=== PATIENT | female | born 1945 | race African-American/Black ===

== ENCOUNTER 2016-07-28 17:29 | Inpatient (IN) | payer BC, OTHER ==
--- NOTE | ~2016-07-28 | CN ---
Consultation Report [facility] [address] [facility] [place]. [address] NAME: OSIEL MURPHY : 47 STATUS : ADM IN [facility]#: [id number] AGE: 70 ADM/REG DATE : 07/28/16 MR#: [id number] REPORT SERV DATE: 07/29/16 DICTATED BY: SHASHANK WINTER DATE: 07/29/16 REPORT STATUS : Draft TRANSCRIBED BY: MODJessi DATE: 07/29/16 CONSULTATION DATE OF CONSULTATION: TIME: 1045 hours. REASON FOR CONSULTATION: 1. Acute on chronic kidney injury with underlying dehydration like may have gone on to ATN in a patient who likely has chronic kidney disease that has now progressed to stage III from poorly controlled diabetes and hypertension. Previously seen by Dr. Larkin in the office in 2001 for evaluation of proteinuria with no followup. 2. Severe dehydration with severe hyponatremia that is likely fairly acute in the setting off all hyperosmolar nonketotic diabetic ketoacidosis precipitated by glycosuria and a blood sugar initially in the 1000s. 3. Poorly controlled diabetes, hyperglycemia. 4. Hypertension. 5. Proteinuria that is likely diabetic in nature. Diabetic nephropathy induced, but we will evaluate further. We will hold off on Oni or ARB or any antiproteinuric therapy for now until we can determine what her baseline creatinine is. HISTORY OF PRESENT ILLNESS: History is obtained from the family and the records available. The patient remains lethargic and unable to provide me information at this time. I did get some information from two granddaughters who were there and Dr. Curiel's HPI. She is a 70-year-old female, who has history of longstanding diabetes, but apparently came off her diabetic medications six months ago because apparently she was advised her blood sugars were stable. She has developed increasing sluggishness, fatigue, polyuria, polydipsia, and all features consistent with hyperglycemia and then with worsening symptoms of polyuria and polydipsia and some dysuria, she came in for further evaluation, and was found to have these markedly abnormal labs. PAST MEDICAL HISTORY: Includes 1. Diabetes mellitus, off medications, six months. 2. Fatty liver. 3. Proteinuria with CKD, now 3. 4. Migraine headaches. 5. Gastroesophageal reflux disease. 6. Hypertension. PAST SURGICAL HISTORY: Includes hysterectomy and partial thyroidectomy. ALLERGIES: NO KNOWN DRUG ALLERGIES. Consultation Report [facility] [address] [place]. [address] NAME: OSIEL MURPHY : [birth year] STATUS : ADM IN [facility]#: [id number] AGE: 70 ADM/REG DATE : 07/28/16 MR#: [id number] REPORT SERV DATE: 07/29/16 DICTATED BY: SHASHANK WINTER DATE: 07/29/16 REPORT STATUS : Draft TRANSCRIBED BY: MODJessi DATE: 07/29/16 MEDICATIONS: No home medications at the present time. 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 FAMILY HISTORY: Negative for diabetes and hypertension, end-stage renal failure, apparently strong family history of cancer physical. REVIEW OF SYSTEMS: As per the HPI. PHYSICAL EXAMINATION: GENERAL: She is an obese female, who is lying in bed, but will not follow commands. VITAL SIGNS: Blood pressures have been running in 130s over 60s. Heart rate is about 113. HEENT: Pupils are reacting to light. She is pale, but not jaundiced. Oral mucosa is dry. No pharyngitis. NECK: Supple. No thyromegaly. Trachea is central. Air entry is equal bilaterally. CHEST: Clear to auscultation. CARDIAC: [place] beats not displaced. S1, S2. No rub. ABDOMEN: Mildly distended. No hepatosplenomegaly. No tenderness, guarding, or rebound. Bowel sounds are normal. EXTREMITIES: She has no peripheral edema. Reduced peripheral pulses are present and no skin rash reported. She is moving all limbs spontaneously. NEUROLOGIC: No gross neurological deficits described. LABORATORY DATA: Her initial blood gas ; pH 7.24, pCO2 of 32, pO2 of 82, saturation 94.3. Sodiums have run from as high as 166 on 07/29/2016 at 0631 hours, now running 165, and previously 140 to 161; potassium 4.3; chloride 134; CO2 of 22; BUN 43; creatinine 1.99; glucose 449, but was as high as 1259; phosphorus was 2.2; and magnesium 3.6. Hemoglobin is 16.5, hematocrit 47.9, white count 14.1, and platelets were 176,000. She had large amount of blood in the urinalysis. Leukocyte esterase was trace however, and she had 30 mg/dL proteinuria, but marked glycosuria. MG/MODL Shashank Winter M.D. / [id number] CC: Joseph Rendon M.D.
--- NOTE | ~2016-07-28 | DS ---
Discharge Summary [facility] [id number] [place]. [address] NAME: OSIEL MURPHY : 47 STATUS : ADM IN [facility]#: [id number] AGE: 70 ADM/REG DATE : 07/28/16 MR#: [id number] REPORT SERV DATE: 08/02/16 DICTATED BY: Joseph RENDON DATE: 08/02/16 REPORT STATUS : Draft TRANSCRIBED BY: ALEXEI DATE: 08/02/16 ADMISSION DATE: 07/28/2016 DISCHARGE DATE: 08/02/2016 DIAGNOSES AT DISCHARGE: Hyperosmolar state, resolved; diabetic ketoacidosis, resolved; hypernatremia, resolved; hypovolemic shock, present on admission, resolved; acute kidney injury, present on admission, resolved; uncontrolled insulin-dependent diabetes, hemoglobin A1c of 14.8; and hypertension. CONSULTATION: Nephrology. PROCEDURES: None. BRIEF SUMMARY: 70-year-old female patient, who was taken off her diabetic medications, presented after several days of increasing fatigue, polyuria, and polydipsia, was found to be both hyperosmolar hyperglycemic and profoundly hypotensive consistent with hypovolemic shock. The patient was placed in intermediate care with aggressive volume resuscitation as well as IV insulin to control her blood glucose. Nephrology was consulted to assist in her severe electrolyte derangement. The patient responded very well to several days of cautious fluid correction and electrolyte correction. Once the patient's electrolytes were back to baseline and her blood glucose was controlled on subcu insulin, she was felt stable to transition back home. Currently, she will be on Levemir 20 units b.i.d. We will make sure she has a glucometer, test strips, lancets, and Levemir FlexPens. She will continue her other medicines per med reconciliation form. She will follow up with her primary care provider in approximately three weeks. SIGNIFICANT LABS AT DISCHARGE: Include a hemoglobin A1c of 14.8. Sodium 144, potassium 4.1, chloride 110, and creatinine 0.72. WBC count is 7.1, hemoglobin 12.9, and platelets 138. DICTATED BY: Joseph Rendon M.D. [facility] Joseph Rendon M.D. / [id number] CC: Joseph Rendon M.D.
--- NOTE | ~2016-07-28 | HP ---
History And Physical [address] [place]. [address] NAME: OSIEL MURPHY : [birth year] STATUS : ADM IN [facility]#: [id number] AGE: 70 ADM/REG DATE : 07/28/16 MR#: [id number] REPORT SERV DATE: 07/29/16 DICTATED BY: AVANI GREEN DATE: 07/28/16 REPORT STATUS : Draft TRANSCRIBED BY: MODJessi DATE: 07/28/16 DATE OF ADMISSION: 07/28/2016 CHIEF COMPLAINT: A 70-year-old female, presenting with poorly controlled diabetes. HISTORY OF PRESENTING ILLNESS: The patient's history was obtained through careful interview with the patient and daughter, coupled with review of [facility] medical records. About six months ago, the patient had been followed outpatient on chronic glyburide and metformin because of "a good hemoglobin A1c." She was told that she can come completely off her diabetes medications. When she came off her diabetes medicine, she also ceased taking her blood sugars, although she still claims she attempts to keep diabetic diet. About the last two months, the patient has been feeling increasing sluggishness, fatigue, and just overall ill and then has had increasing polyuria and polydipsia. Over the last several days, the urine has been the thing bothering her the most. She states that the urine is so frequent that it has begun to hurt about a 6/10 severity, burning discomfort, and she has extreme polydipsia. Despite having diabetes, she will often drinks juice to quench her thirst. She has felt lethargic, confused. She has had subjective diaphoresis, fevers, chills, nausea, vomiting. She describes abdominal discomfort, cramping diffusely about a 6/10 severity as well. She has had dyspnea on exertion. No cough. No chest pain. She has had light headedness, dizziness, near syncope. REVIEW OF SYSTEMS: Otherwise, a 14-point review of systems was obtained and was negative. PAST MEDICAL HISTORY: 1. Diabetes. Taken off all of her medications about six months ago by her own recollection. 2. Fatty liver disease. 3. Migraine headaches. 4. Gastroesophageal reflux disorder. 5. Hypertension. 6. No cardiac disease. No lung disease. PAST SURGICAL HISTORY: 1. Hysterectomy. 2. Partial thyroidectomy. History And Physical [address] [place]. [address] NAME: OSIEL MURPHY : [birth year] STATUS : ADM IN [facility]#: [id number] AGE: 70 ADM/REG DATE : 07/28/16 MR#: [id number] REPORT SERV DATE: 07/29/16 DICTATED BY: AVANI GREEN DATE: 07/28/16 REPORT STATUS : Draft TRANSCRIBED BY: ALEXEI DATE: 07/28/16 ALLERGIES: NO KNOWN DRUG ALLERGIES. SOCIAL HISTORY: No tobacco abuse. No alcohol abuse. She is retired rehab counselor. She lives alone now, has three children and daughter who lives very close by. FAMILY HISTORY: No diabetes in the family is known. Strong family history of cancer. CURRENT MEDICATIONS: Include Zyrtec, multivitamin, turmeric, lutein, zeaxanthin, and eye drops. PHYSICAL EXAMINATION: VITAL SIGNS: Temperature 98.7, pulse 120, blood pressure 96/69, respiratory rate 18, and O2 saturation 95% on room air. GENERAL: A pleasant, cooperative, female, but she is extremely lethargic, poorly responsive, although will eventually respond to persistent vocal stimuli. HEENT: Pupils equal, round, and reactive to light. No conjunctival pallor. No scleral icterus. Nares are patent. Oropharynx is clear of obstruction. Very dry mucous membranes. Cracking of the tongue, lips, neck. Trachea midline. No thyromegaly. LYMPH: No cervical lymphadenopathy. No supraclavicular lymphadenopathy. RESPIRATORY: Clear to auscultation at bases. No wheezes, rales, or rhonchi. Normal respiratory effort. CARDIOVASCULAR: Tachycardic, regular rhythm. No murmurs, rubs, or gallops. No extremity edema is appreciated. ABDOMEN: Soft, nontender, nondistended. Normal bowel sounds auscultated throughout. No hepatosplenomegaly. DERMATOLOGICAL: Warm and dry extremities. No pallor. No cyanosis. Tenting of the skin to suggest dehydration. PSYCHIATRIC: Extremely lethargic, but she does eventually respond to persistent vocal stimuli. She is oriented to time and location though and seems oriented to her recent history as well. She has a flat affect, claims to be in a good mood. LABORATORY DATA: White blood cell count 13.8, hemoglobin 17, hematocrit 48, platelets 255. Sodium 146, potassium 5.8, chloride 106, bicarbonate 18, BUN 56, creatinine 3.85 from baseline creatinine of 0.6, glucose 1259, troponin negative. Liver enzymes within normal limits. INR 1.2. ABG demonstrates pH 7.23, a PaCO2 of 31, a PaO2 of 82, and a bicarbonate of 13. Urinalysis negative for infection. STUDIES: 1. Chest x-ray by my own evaluation shows no acute cardiopulmonary process. 2. EKG by my own evaluation shows sinus tachycardia. ASSESSMENT AND PLAN: 1. The patient seems to have a combination of diabetic ketoacidosis and hyperosmolar hyperglycemic state with early coma like changes. We will place her on aggressive IV fluids as the primary treatment, but also an insulin drip IV. Follow basic metabolic panel, magnesium, phosphorus every four hours x48 hours. Check hemoglobin A1c. History And Physical [address] [address] NAME: OSIEL MURPHY : 47 STATUS : ADM IN [facility]#: [id number] AGE: 70 ADM/REG DATE : 07/28/16 MR#: [id number] REPORT SERV DATE: 07/29/16 DICTATED BY: AVANI GREEN DATE: 07/28/16 REPORT STATUS : Draft TRANSCRIBED BY: ALEXEI DATE: 07/28/16 clinical document improvement educator consult and monitor in the IMCU. 2. Acute renal failure. Place on IV fluids. Place Ann catheter for [address]. [address] on IV fluids. Admit to the IMCU. KPL/MODL Avani Green M.D. / [id number] CC: Joseph Rendon M.D.
[~2016-07-28 17:29] MED LIST: ALLEGRA PO; CLIMARA0.1 MG PO; LYRICA75 PO; NORV10 PO; PRILO PO
[2016-07-28 18:02] LABS: BE (BASE EXCESS) -12.9 MEQ/L (0 +/- 2.5); HCO3 (ACTUAL BICARBONATE) 13.2 MEQ/L (23-27); INSTRUMENT SERIAL # 8087; PCO2 (CO2 TENSION) 32 MMHG (35-45); PO2 (O2 TENSION) 82 MMHG (79-93); pH 7.24 (7.37-7.43)
[2016-07-28 18:03] LABS: ALLENS TEST Pos; SAMPLE Arterial
[2016-07-28 18:04] LABS: INTERNATIONAL NORMAL RATI 1.2 UNITS (-); PROTIME (NOT ORD) 14.7 SEC (12.0-14.5)
[2016-07-28 18:05] LABS: BASOPHILS 0.1 %; BASOPHILS ABSOLUTE 0.01 10/3/uL (0.0-0.16); EOSINOPHILS 0.1 %; EOSINOPHILS ABSOLUTE 0.01 10/3/uL (0.0-0.53); ER CBC TAT 0 Hrs 13 Mins; HEMOGLOBIN 17.2 g/dL (12.0-16.0); IMMATURE GRANULOCYTES 0.4 %; IMMATURE GRANULOCYTES ABSOLUTE 0.06 10/3/uL (0.0-0.11); LYMPHOCYTES 9.8 %; LYMPHOCYTES ABSOLUTE 1.35 10/3/uL (0.67-4.30); MEAN CORPUSCULAR HEMOGLOB 30.5 pg (26.0-34.0); MONOCYTES 8.9 %; MONOCYTES ABSOLUTE 1.23 10/3/uL (0.21-1.20); NEUTROPHILS 80.7 %; NEUTROPHILS ABSOLUTE 11.12 10/3/uL (2.02-8.40); PLATELET COUNT 255 10/3/uL (150-400); RED CELL COUNT 5.64 10/6/uL (4.0-5.6); WHITE BLOOD CELLS 13.8 10/3/uL (4.5-10.5)
[2016-07-28 18:13] LABS: A/G RATIO 0.8 (0.7-1.9); ALBUMIN 4.1 G/DL (3.5-5.0); ALKALINE PHOSPHATASE 154 U/L (45-117); CHLORIDE, SERUM 106 MMOL/L (96-112); GLOBULIN 4.9 G/DL (2.5-4.1); SGOT(AST) 15 U/L (5-40); SGPT(ALT) 30 U/L (5-65); SODIUM, SERUM 146 MMOL/L (135-148); TOTAL BILIRUBIN 0.9 MG/DL (0-1.2); TROPONIN I <0.02 NG/ML (<0.05)
[2016-07-28 18:14] LABS: BUN (BLOOD UREA NITROGEN) 56 MG/DL (6-23); CALCIUM, SERUM 10.3 MG/DL (8.5-10.4); CO2 (CARBON DIOXIDE) 18 MMOL/L (24-34); CREATININE 3.85 MG/DL (0.55-1.02); GFR AFRICAN AMERICAN 13 ML/MIN (>=60); GFR NON AFRICAN AMERICAN 11 ML/MIN (>=60); GLUCOSE, SERUM 1259 MG/DL (60-99); POTASSIUM, SERUM 5.8 MMOL/L (3.5-5.3)
[2016-07-28 18:30] LABS: MEAN CORPUS HGB CONC 35.5 g/dL (32.0-36.0)
[2016-07-28 18:32] LABS: MANUAL DIFF NO %
[2016-07-28 18:33] LABS: HEMATOCRIT 48.5 % (36.0-48.0)
[2016-07-28] MEDS ORDERED: COSOPT OPH (18:37)
[2016-07-28 18:39] LABS: ASCORBIC ACID (UR NOT ORDER) NEG (NEG); BILIRUBIN, URINE NEGATIVE (NEG); ER URINALYSIS TAT 0 Hrs 18 Mins; KETONE, URINE 20 MG/DL (NEG); LEUKOCYTE ESTERASE(NOT OR TRACE (NEG); NITRITE (URINE) NEG (NEG); WBC (NOT ORDERED) (RFLEX) 3 (0-5)
[2016-07-28] MEDS ORDERED: *UNABLE2 (18:42)
[2016-07-28 19:02] LABS: ACETONE SMALL
[2016-07-28] MEDS ORDERED: ZYRTEC ALLGY10 MG PO (20:30)
[2016-07-28] MEDS ORDERED: CENTRUM PO (20:31)
[2016-07-28] MEDS ORDERED: TURMERIC PO (20:32)
[2016-07-28] MEDS ORDERED: ICAPS LUTEI1 PO (20:32)
[2016-07-29 01:19] LABS: CALCIUM, SERUM 9.6 MG/DL (8.5-10.4); CHLORIDE, SERUM 127 MMOL/L (96-112); CO2 (CARBON DIOXIDE) 18 MMOL/L (24-34); PHOSPHORUS, SERUM 4.2 MG/DL (2.5-4.5); POTASSIUM, SERUM 4.8 MMOL/L (3.5-5.3)
[2016-07-29 01:20] LABS: BUN (BLOOD UREA NITROGEN) 52 MG/DL (6-23); CREATININE 2.25 MG/DL (0.55-1.02); GFR AFRICAN AMERICAN 25 ML/MIN (>=60); GFR NON AFRICAN AMERICAN 22 ML/MIN (>=60); GLUCOSE, SERUM 728 MG/DL (60-99); SODIUM, SERUM 161 MMOL/L (135-148)
[2016-07-29 03:15] LABS: BASOPHILS 0.1 %; BASOPHILS ABSOLUTE 0.01 10/3/uL (0.0-0.16); EOSINOPHILS 0 %; HEMATOCRIT 47.9 % (36.0-48.0); HEMOGLOBIN 16.5 g/dL (12.0-16.0); IMMATURE GRANULOCYTES 0.4 %; IMMATURE GRANULOCYTES ABSOLUTE 0.05 10/3/uL (0.0-0.11); LYMPHOCYTES 14.3 %; LYMPHOCYTES ABSOLUTE 2.02 10/3/uL (0.67-4.30); MEAN CORPUS HGB CONC 34.4 g/dL (32.0-36.0); MEAN CORPUSCULAR HEMOGLOB 31.5 pg (26.0-34.0); MEAN PLATELET VOLUME 10.8 fL (9.2-13.0); MONOCYTES 6.5 %; MONOCYTES ABSOLUTE 0.92 10/3/uL (0.21-1.20); NEUTROPHILS 78.7 %; RBC DISTRIBUTION WIDTH 13.8 % (12.0-16.0); RED CELL COUNT 5.24 10/6/uL (4.0-5.6); WHITE BLOOD CELLS 14.1 10/3/uL (4.5-10.5)
[2016-07-29 03:24] LABS: MANUAL DIFF NO %; MEAN CORPUSCULAR VOLUME 91.4 fL (80-100); PLATELET COUNT 176 10/3/uL (150-400)
[2016-07-29 03:25] LABS: INTERNATIONAL NORMAL RATI 1.2 UNITS (-); PROTIME (NOT ORD) 15.2 SEC (12.0-14.5)
[2016-07-29 03:36] LABS: B NATRIURETIC PEPTIDE (BNP) 16.8 PG/ML (< 100.0)
[2016-07-29 03:38] LABS: A/G RATIO 0.8 (0.7-1.9); ALBUMIN 3.6 G/DL (3.5-5.0); BUN (BLOOD UREA NITROGEN) 49 MG/DL (6-23); CALCIUM, SERUM 9.6 MG/DL (8.5-10.4); CHLORIDE, SERUM 133 MMOL/L (96-112); CO2 (CARBON DIOXIDE) 20 MMOL/L (24-34); CPK (IF ELEVATED MB BANDS) 54 U/L (0-200); CREATININE 2.22 MG/DL (0.55-1.02); GFR AFRICAN AMERICAN 25 ML/MIN (>=60); GFR NON AFRICAN AMERICAN 22 ML/MIN (>=60); GLOBULIN 4.5 G/DL (2.5-4.1); POTASSIUM, SERUM 4.1 MMOL/L (3.5-5.3); SGOT(AST) 41 U/L (5-40); SGPT(ALT) 40 U/L (5-65); SODIUM, SERUM 164 MMOL/L (135-148); TOTAL BILIRUBIN 0.6 MG/DL (0-1.2); TOTAL PROTEIN 8.1 G/DL (6.0-8.5); TROPONIN I <0.02 NG/ML (<0.05); ULTRASENSITIVE TSH 0.691 MCIU/ML (0.358-3.740)
[2016-07-29 03:39] LABS: ALKALINE PHOSPHATASE 139 U/L (45-117); GLUCOSE, SERUM 625 MG/DL (60-99); PHOSPHORUS, SERUM 2.3 MG/DL (2.5-4.5)
[2016-07-29 03:47] LABS: PARTIAL THROMBO TIME 22.2 SEC (22.5-37.2)
[2016-07-29 06:58] LABS: CALCIUM, SERUM 9.6 MG/DL (8.5-10.4); CHLORIDE, SERUM 131 MMOL/L (96-112); CO2 (CARBON DIOXIDE) 22 MMOL/L (24-34); CREATININE 2.08 MG/DL (0.55-1.02); GFR AFRICAN AMERICAN 27 ML/MIN (>=60); GFR NON AFRICAN AMERICAN 24 ML/MIN (>=60); POTASSIUM, SERUM 3.8 MMOL/L (3.5-5.3)
[2016-07-29 06:59] LABS: BUN (BLOOD UREA NITROGEN) 44 MG/DL (6-23); GLUCOSE, SERUM 491 MG/DL (60-99); SODIUM, SERUM 166 MMOL/L (135-148)
[2016-07-29 07:23] LABS: GLYCOHEMOGLOBIN (HbA1c) 14.8 % (4.7-6.1)
[2016-07-29 09:50] LABS: BUN (BLOOD UREA NITROGEN) 43 MG/DL (6-23); CALCIUM, SERUM 9.7 MG/DL (8.5-10.4); CHLORIDE, SERUM 134 MMOL/L (96-112); CO2 (CARBON DIOXIDE) 22 MMOL/L (24-34); CREATININE 1.99 MG/DL (0.55-1.02); GFR AFRICAN AMERICAN 29 ML/MIN (>=60); GFR NON AFRICAN AMERICAN 25 ML/MIN (>=60); GLUCOSE, SERUM 449 MG/DL (60-99); PHOSPHORUS, SERUM 2.2 MG/DL (2.5-4.5); POTASSIUM, SERUM 4.3 MMOL/L (3.5-5.3); SODIUM, SERUM 165 MMOL/L (135-148)
[2016-07-29 12:51] LABS: CHLORIDE, SERUM 133 MMOL/L (96-112); CO2 (CARBON DIOXIDE) 24 MMOL/L (24-34); CREATININE 1.98 MG/DL (0.55-1.02); GFR AFRICAN AMERICAN 29 ML/MIN (>=60); GFR NON AFRICAN AMERICAN 25 ML/MIN (>=60); PHOSPHORUS, SERUM 2.3 MG/DL (2.5-4.5)
[2016-07-29 12:52] LABS: BUN (BLOOD UREA NITROGEN) 39 MG/DL (6-23); GLUCOSE, SERUM 411 MG/DL (60-99); SODIUM, SERUM 166 MMOL/L (135-148)
[2016-07-29 16:58] LABS: BUN (BLOOD UREA NITROGEN) 36 MG/DL (6-23); CALCIUM, SERUM 9.6 MG/DL (8.5-10.4); CHLORIDE, SERUM 132 MMOL/L (96-112); CO2 (CARBON DIOXIDE) 25 MMOL/L (24-34); CREATININE 1.85 MG/DL (0.55-1.02); GFR AFRICAN AMERICAN 32 ML/MIN (>=60); GFR NON AFRICAN AMERICAN 27 ML/MIN (>=60); PHOSPHORUS, SERUM 2.2 MG/DL (2.5-4.5); SODIUM, SERUM 165 MMOL/L (135-148)
[2016-07-29 16:59] LABS: GLUCOSE, SERUM 371 MG/DL (60-99)
[2016-07-29 21:16] LABS: CALCIUM, SERUM 9.4 MG/DL (8.5-10.4); CHLORIDE, SERUM 132 MMOL/L (96-112); CO2 (CARBON DIOXIDE) 28 MMOL/L (24-34); CREATININE 1.65 MG/DL (0.55-1.02); GFR AFRICAN AMERICAN 36 ML/MIN (>=60); GFR NON AFRICAN AMERICAN 31 ML/MIN (>=60); PHOSPHORUS, SERUM 1.6 MG/DL (2.5-4.5); POTASSIUM, SERUM 3.9 MMOL/L (3.5-5.3)
[2016-07-29 21:17] LABS: BUN (BLOOD UREA NITROGEN) 32 MG/DL (6-23); GLUCOSE, SERUM 274 MG/DL (60-99); SODIUM, SERUM 163 MMOL/L (135-148)
[2016-07-30 01:42] LABS: BUN (BLOOD UREA NITROGEN) 29 MG/DL (6-23); CALCIUM, SERUM 9.3 MG/DL (8.5-10.4); CHLORIDE, SERUM 133 MMOL/L (96-112); CO2 (CARBON DIOXIDE) 27 MMOL/L (24-34); CREATININE 1.53 MG/DL (0.55-1.02); GFR AFRICAN AMERICAN 40 ML/MIN (>=60); GFR NON AFRICAN AMERICAN 34 ML/MIN (>=60); GLUCOSE, SERUM 192 MG/DL (60-99); PHOSPHORUS, SERUM 1.7 MG/DL (2.5-4.5); POTASSIUM, SERUM 3.5 MMOL/L (3.5-5.3); SODIUM, SERUM 163 MMOL/L (135-148)
[2016-07-30 04:09] LABS: HEMATOCRIT 48.7 % (36.0-48.0); HEMOGLOBIN 16.2 g/dL (12.0-16.0); MEAN CORPUS HGB CONC 33.3 g/dL (32.0-36.0); MEAN CORPUSCULAR HEMOGLOB 30.9 pg (26.0-34.0); MEAN CORPUSCULAR VOLUME 92.8 fL (80-100); MEAN PLATELET VOLUME 10.6 fL (9.2-13.0); PLATELET COUNT 181 10/3/uL (150-400); RBC DISTRIBUTION WIDTH 14.4 % (12.0-16.0); RED CELL COUNT 5.25 10/6/uL (4.0-5.6); WHITE BLOOD CELLS 12.2 10/3/uL (4.5-10.5)
[2016-07-30 04:12] LABS: MANUAL DIFF YES %
[2016-07-30 04:37] LABS: BAND NEUTROPHILS 4 %; LYMPHOCYTES 5 %; LYMPHOCYTES ABSOLUTE (CALC) 0.61 10/3/uL (0.67-4.30); NEUTROPHILS ABSOLUTE (CALC) 11.59 10/3/uL (2.02-8.40); SEGMENTED NEUTROPHIL (0) 91 %; TOTAL NUCLEATED CELLS 100
[2016-07-30 04:38] LABS: PLATELET ESTIMATE ADQ (ADEQUATE); RBC MORPHOLOGY NORM (NORMAL)
[2016-07-30 04:39] LABS: BUN (BLOOD UREA NITROGEN) 26 MG/DL (6-23); CALCIUM, SERUM 9.3 MG/DL (8.5-10.4); CHLORIDE, SERUM 130 MMOL/L (96-112); CO2 (CARBON DIOXIDE) 25 MMOL/L (24-34); CREATININE 1.45 MG/DL (0.55-1.02); GFR AFRICAN AMERICAN 42 ML/MIN (>=60); GFR NON AFRICAN AMERICAN 37 ML/MIN (>=60); GLUCOSE, SERUM 191 MG/DL (60-99); PHOSPHORUS, SERUM 2.1 MG/DL (2.5-4.5); POTASSIUM, SERUM 3.9 MMOL/L (3.5-5.3)
[2016-07-30 04:41] LABS: SODIUM, SERUM 163 MMOL/L (135-148)
[2016-07-30 08:54] LABS: BUN (BLOOD UREA NITROGEN) 26 MG/DL (6-23); CALCIUM, SERUM 9.2 MG/DL (8.5-10.4); CHLORIDE, SERUM 126 MMOL/L (96-112); CO2 (CARBON DIOXIDE) 27 MMOL/L (24-34); CREATININE 1.39 MG/DL (0.55-1.02); GFR AFRICAN AMERICAN 45 ML/MIN (>=60); GFR NON AFRICAN AMERICAN 39 ML/MIN (>=60); PHOSPHORUS, SERUM 2.2 MG/DL (2.5-4.5); POTASSIUM, SERUM 3.7 MMOL/L (3.5-5.3)
[2016-07-30 08:57] LABS: GLUCOSE, SERUM 350 MG/DL (60-99); SODIUM, SERUM 160 MMOL/L (135-148)
[2016-07-30 13:38] LABS: CALCIUM, SERUM 9.2 MG/DL (8.5-10.4); CHLORIDE, SERUM 123 MMOL/L (96-112); CO2 (CARBON DIOXIDE) 28 MMOL/L (24-34); CREATININE 1.38 MG/DL (0.55-1.02); GFR AFRICAN AMERICAN 45 ML/MIN (>=60); GFR NON AFRICAN AMERICAN 39 ML/MIN (>=60); GLUCOSE, SERUM 350 MG/DL (60-99); PHOSPHORUS, SERUM 2.6 MG/DL (2.5-4.5); POTASSIUM, SERUM 4.3 MMOL/L (3.5-5.3)
[2016-07-30 13:40] LABS: BUN (BLOOD UREA NITROGEN) 22 MG/DL (6-23); SODIUM, SERUM 157 MMOL/L (135-148)
[2016-07-30 16:13] LABS: BUN (BLOOD UREA NITROGEN) 21 MG/DL (6-23); CALCIUM, SERUM 8.9 MG/DL (8.5-10.4); CHLORIDE, SERUM 125 MMOL/L (96-112); CO2 (CARBON DIOXIDE) 27 MMOL/L (24-34); CREATININE 1.35 MG/DL (0.55-1.02); GFR AFRICAN AMERICAN 46 ML/MIN (>=60); GFR NON AFRICAN AMERICAN 40 ML/MIN (>=60); PHOSPHORUS, SERUM 2.8 MG/DL (2.5-4.5); POTASSIUM, SERUM 3.8 MMOL/L (3.5-5.3); SODIUM, SERUM 153 MMOL/L (135-148)
[2016-07-30 16:14] LABS: GLUCOSE, SERUM 251 MG/DL (60-99)
[2016-07-30 20:34] LABS: CALCIUM, SERUM 8.9 MG/DL (8.5-10.4); CHLORIDE, SERUM 123 MMOL/L (96-112); CO2 (CARBON DIOXIDE) 28 MMOL/L (24-34); CREATININE 1.23 MG/DL (0.55-1.02); GFR AFRICAN AMERICAN 52 ML/MIN (>=60); GFR NON AFRICAN AMERICAN 45 ML/MIN (>=60); GLUCOSE, SERUM 214 MG/DL (60-99); PHOSPHORUS, SERUM 2.5 MG/DL (2.5-4.5); POTASSIUM, SERUM 4.2 MMOL/L (3.5-5.3); SODIUM, SERUM 155 MMOL/L (135-148)
[2016-07-30 20:35] LABS: BUN (BLOOD UREA NITROGEN) 16 MG/DL (6-23)
[2016-07-31 00:59] LABS: BUN (BLOOD UREA NITROGEN) 14 MG/DL (6-23); CALCIUM, SERUM 8.6 MG/DL (8.5-10.4); CHLORIDE, SERUM 120 MMOL/L (96-112); CO2 (CARBON DIOXIDE) 30 MMOL/L (24-34); CREATININE 1.12 MG/DL (0.55-1.02); GFR AFRICAN AMERICAN 58 ML/MIN (>=60); GFR NON AFRICAN AMERICAN 50 ML/MIN (>=60); GLUCOSE, SERUM 227 MG/DL (60-99); PHOSPHORUS, SERUM 2.3 MG/DL (2.5-4.5); POTASSIUM, SERUM 3.4 MMOL/L (3.5-5.3); SODIUM, SERUM 154 MMOL/L (135-148)
[2016-07-31 16:22] LABS: CALCIUM, SERUM 8.6 MG/DL (8.5-10.4); CHLORIDE, SERUM 116 MMOL/L (96-112); CO2 (CARBON DIOXIDE) 31 MMOL/L (24-34); CREATININE 0.74 MG/DL (0.55-1.02); GFR AFRICAN AMERICAN 96 ML/MIN (>=60); GFR NON AFRICAN AMERICAN 83 ML/MIN (>=60); POTASSIUM, SERUM 3.2 MMOL/L (3.5-5.3); SODIUM, SERUM 150 MMOL/L (135-148)
[2016-07-31 16:27] LABS: BUN (BLOOD UREA NITROGEN) 9 MG/DL (6-23); GLUCOSE, SERUM 126 MG/DL (60-99)
[2016-08-01 06:25] LABS: BASOPHILS 0.1 %; BASOPHILS ABSOLUTE 0.01 10/3/uL (0.0-0.16); EOSINOPHILS 3.1 %; EOSINOPHILS ABSOLUTE 0.27 10/3/uL (0.0-0.53); IMMATURE GRANULOCYTES 0.1 %; IMMATURE GRANULOCYTES ABSOLUTE 0.01 10/3/uL (0.0-0.11); LYMPHOCYTES 35.7 %; LYMPHOCYTES ABSOLUTE 3.08 10/3/uL (0.67-4.30); MEAN CORPUS HGB CONC 33.6 g/dL (32.0-36.0); MEAN CORPUSCULAR HEMOGLOB 30.5 pg (26.0-34.0); MEAN CORPUSCULAR VOLUME 90.7 fL (80-100); MEAN PLATELET VOLUME 10.6 fL (9.2-13.0); MONOCYTES 7.3 %; MONOCYTES ABSOLUTE 0.63 10/3/uL (0.21-1.20); NEUTROPHILS 53.7 %; NEUTROPHILS ABSOLUTE 4.62 10/3/uL (2.02-8.40); PLATELET COUNT 135 10/3/uL (150-400); RBC DISTRIBUTION WIDTH 13.4 % (12.0-16.0); WHITE BLOOD CELLS 8.6 10/3/uL (4.5-10.5)
[2016-08-01 06:26] LABS: HEMATOCRIT 36.9 % (36.0-48.0); HEMOGLOBIN 12.4 g/dL (12.0-16.0); MANUAL DIFF NO %; RED CELL COUNT 4.07 10/6/uL (4.0-5.6)
[2016-08-01 06:37] LABS: ALBUMIN 2.4 G/DL (3.5-5.0); BUN (BLOOD UREA NITROGEN) 7 MG/DL (6-23); CHLORIDE, SERUM 114 MMOL/L (96-112); CO2 (CARBON DIOXIDE) 26 MMOL/L (24-34); CREATININE 0.67 MG/DL (0.55-1.02); GFR AFRICAN AMERICAN 104 ML/MIN (>=60); GFR NON AFRICAN AMERICAN 90 ML/MIN (>=60); GLUCOSE, SERUM 120 MG/DL (60-99); PHOSPHORUS, SERUM 2.3 MG/DL (2.5-4.5); SODIUM, SERUM 149 MMOL/L (135-148)
[2016-08-02 04:42] LABS: BASOPHILS 0.1 %; BASOPHILS ABSOLUTE 0.01 10/3/uL (0.0-0.16); EOSINOPHILS 3.5 %; EOSINOPHILS ABSOLUTE 0.25 10/3/uL (0.0-0.53); HEMATOCRIT 38.4 % (36.0-48.0); HEMOGLOBIN 12.9 g/dL (12.0-16.0); IMMATURE GRANULOCYTES 0.3 %; IMMATURE GRANULOCYTES ABSOLUTE 0.02 10/3/uL (0.0-0.11); LYMPHOCYTES 34.8 %; LYMPHOCYTES ABSOLUTE 2.47 10/3/uL (0.67-4.30); MEAN CORPUS HGB CONC 33.6 g/dL (32.0-36.0); MEAN CORPUSCULAR HEMOGLOB 30.3 pg (26.0-34.0); MEAN CORPUSCULAR VOLUME 90.1 fL (80-100); MEAN PLATELET VOLUME 10.4 fL (9.2-13.0); MONOCYTES 8.5 %; NEUTROPHILS 52.8 %; NEUTROPHILS ABSOLUTE 3.75 10/3/uL (2.02-8.40); PLATELET COUNT 138 10/3/uL (150-400); RBC DISTRIBUTION WIDTH 13.2 % (12.0-16.0); RED CELL COUNT 4.26 10/6/uL (4.0-5.6); WHITE BLOOD CELLS 7.1 10/3/uL (4.5-10.5)
[2016-08-02 04:45] LABS: MANUAL DIFF NO %
[2016-08-02 04:54] LABS: ALBUMIN 2.4 G/DL (3.5-5.0); CALCIUM, SERUM 9.2 MG/DL (8.5-10.4); CHLORIDE, SERUM 110 MMOL/L (96-112); CO2 (CARBON DIOXIDE) 30 MMOL/L (24-34); CREATININE 0.72 MG/DL (0.55-1.02); GFR AFRICAN AMERICAN 99 ML/MIN (>=60); GFR NON AFRICAN AMERICAN 85 ML/MIN (>=60); PHOSPHORUS, SERUM 2.7 MG/DL (2.5-4.5); POTASSIUM, SERUM 4.1 MMOL/L (3.5-5.3); SODIUM, SERUM 144 MMOL/L (135-148)
[2016-08-02 04:56] LABS: BUN (BLOOD UREA NITROGEN) 12 MG/DL (6-23); GLUCOSE, SERUM 201 MG/DL (60-99)
[2016-08-02] MEDS ORDERED: LEVEMFLXPN SC (11:47)
== END 2016-08-02 13:30 | disposition home health service (06) | DRG 637 ==
LOC: ER 17:29 → IMCU 20:27
PROVIDERS: Emergency Medicine; Hospitalist; Internal Medicine
PROC: 02HV33Z Insertion of Infusion Device into Superior Vena Cava, Percutaneous Approach (ICD-10-PCS; principal; 2016-07-29)
PROC: 4A02X4A Measurement of Cardiac Electrical Activity, Guidance, External Approach (ICD-10-PCS; 2016-07-29)
DX: E13.10 Other specified diabetes mellitus with ketoacidosis without coma (principal); N17.0 Acute kidney failure with tubular necrosis; R57.1 Hypovolemic shock; E87.0 Hyperosmolality and hypernatremia; I12.9 Hypertensive chronic kidney disease with stage 1 through stage 4 chronic kidney disease, or unspecified chronic kidney disease; N18.3 Chronic kidney disease, stage 3 (moderate)
CPT/HCPCS: 36569; 36593; 36600; 71010; 80048; 80053; 80069; 81001; 82009; 82550; 82805; 82947; 82962; 83036; 83735; 83880; 83930; 83935; 84100; 84132; 84443; 84484; 85025; 85610; 85730; 87641; 93005; 96361; 96374; 99291; A9270-GY; C1751; J2405; J2997